=== PATIENT | female | born 1990 | race Caucasian/White ===

== ENCOUNTER 2017-02-14 14:48 | Emergency (ER) | payer OTHER ==
--- NOTE | 2017-02-14 17:11 | ED NURSING NOTES ---
Clinical Report - Nurses [facility] [address] [place] [address] 02/14/2017 14:48 Patient: CHAYO MOYA [facility]#: [id number] TRIAGE Triage time 15:00. Acuity: LEVEL 3. Chief Complaint: SKIN LESION. Alert. JEANIE COMA SCORE: [place] Coma Scale: 15- eyes open spontaneously (4); best verbal response- oriented x 4 (5); best motor response- obeys commands (6). --15:08 Dana Martin R.N. 15:00 02/14/17. BP: 121/76. HR: 88. RR: 18. O2 saturation: 99% on room air. Temp: 98.2 F (oral). Pain level now: 07/13. --15:08 Dana Martin R.N. Weight: 54.4 kg stated. Height/Length: 64 inches Per Patient. BMI: 20.6. --15:02 Dana Martin R.N. Medications None. --15:01 Dana Martin R.N. Medication/allergy information source: the patient. --15:08 Dana Martin R.N. Allergies No Known Drug Allergy. --15:02 Dana Martin R.N. History Arrived by private vehicle. Historian: patient. Accompanied by family. Primary physician (none). Reported as located on the right knee, left arm and left knee. Onset. (about 2 days). It is described as painful. PAST MEDICAL HX: Last normal menstrual period- IUD, no period for 7 years. SOCIAL HX: Light tobacco smoker- less than 1/2 a pack per day. History of heavy drug use: heroin. (injects). No alcohol use. --15:08 Dana Martin R.N. PROBLEMS: Herpes Zoster. Anemia. Substance Abuse. Cellulitis. Hemorrhage. Healing Abscess. Constipation. Lifestyle / Substance Problems. Abscess. Seizure. --15:02 Dana Martin R.N. ADDITIONAL SURGERIES: Adenoidectomy. Appendectomy. Mal rotated bowel surgery as child. Tonsillectomy. Tonsillectomy & Adenoidectomy. --15:02 Dana Martin R.N. Assessment GENERAL / NEURO / PSYCH: The patient is awake and alert, is oriented and cooperative and appears uncomfortable. She has poor eye contact. RESPIRATORY: Respirations not labored. SKIN: Skin is warm and dry. --15:08 Dana Martin R.N. Interventions ID band on patient. To treatment room. --15:08 Dana Martin R.N. PHYSICAL ASSESSMENT 15:09 02/14/17. Ambulatory to room. Patient gowned. GENERAL / NEURO / PSYCH: The patient is awake and alert, is oriented and cooperative and appears uncomfortable. She has poor eye contact. RESPIRATORY: Respirations not labored. SKIN: Skin is warm and dry. Skin lesion on the right knee, left forearm and left knee. Drainage. Skin tenderness present. Swelling present. Erythema present. --15:09 Dana Martin R.N. NURSING PROGRESS NOTES 15:02/14/17. Patient gowned. Head of bed elevated. Call light placed in reach. Side rails up x 1. Bed placed in lowest position. Brakes of bed on. --15:10 Dana Martin R.N. 15:30 02/14/2017 Site #1 started via IV in the right forearm with an 24g angiocath, with aseptic technique and good blood return; one attempt. Saline lock flushed with 10 mL saline (unable to draw blood). --15:30 Dana Martin R.N. 17:00 02/14/2017 Started 1 gm of Vancomycin IVPB in bag #1 250 mL; at 250 mL/hr over 1 hour(s) via site #1 --17:00 Gurmeet Berrios R.N. 17:23 02/14/17. BP: 120/80. HR: 96. RR: 18. O2 saturation: 100% on room air. Pain level now: unknown. --17:24 Dana Martin R.N. 17:24 02/14/17. Reassessment after medication administered. She is sleeping. Overall patient status is the same- she states feels the same. RESPIRATORY: No respiratory distress. SKIN: Skin is warm and dry. --17:24 Dana Martin R.N. 17:27 02/14/2017 Site #1 reassessed; patent, infusing well and no signs of infiltration. (Vancomycin continues to infuse). --17:27 Dana Martin R.N. 18:05 02/14/2017 Vancomycin IVPB Discontinued: bag #1 infused upon discharge. Total amount infused: 200 mL. IV patency established. IV site checked: no pain, redness, or swelling. IV flushed thoroughly. --18:11 Raysa Orozco R.N. ( three areas of infection (cellulitis and abcess) marked with skin marker. Culture of draining wound on right knee obtained and sent. Dressing applied to right leg abcess.). --18:56 Gurmeet Berrios R.N. Urine collected. --18:58 Gurmeet Berrios R.N. DISPOSITION / DISCHARGE 18:15 02/14/17. BP: 119/76. HR: 101. RR: 16. O2 saturation: 100% on room air. Temp: 100.4 F. Pain level now: 8/10. --18:20 Raysa Orozco R.N. 18:58 02/14/17. BP: 125/92. HR: 104. RR: 24. O2 saturation: 98%. Temp: 100.1 F. Pain level now 7/10. --19:02 Gurmeet Berrios R.N. Condition at departure: unchanged. ( Patient and mother both voiced some concern that patient needed to be discharged. Patient instructed to return here tomorrow for a recheck since she has no primary care and to return here sooner if she starts getting worse.). No learning barriers present. Discharge instructions provided and reviewed with the patient. Patient verbalized understanding. Written instructions provided in Malay. The patient was discharged by the nurse practitioner. She was discharged home and accompanied by parent. She left the Emergency Department ambulatory. --19:02 Gurmeet Berrios R.N. 19:02 02/14/2017 Site #1 removed upon discharge. Catheter intact. Bandaid applied. --19:02 Gurmeet Berrios R.N. Locked/Released at 02/14/2017 19:04 by Gurmeet Berrios R.N.
--- NOTE | 2017-02-14 17:11 | ED ORDER SUMMARY ---
..... Patient: CHAYO MOYA OrderSheet [facility] VisitID: [id number] [place] [address] 26y, F Registration Date/Time: 02/14/2017 ORDER SHEET Weight: 54.4 kg (stated) Allergies: No Known Drug Allergy GENERAL ORDERS: Blood Culture (No) (N/A) Urgent (15:02/14/2017 HBivens A.R.N.P.) (Ack 15:28 Mobilingaurca ER Tech1) (17:25 Alexandre R.N.) CBC w Diff Urgent (:02/14/2017 HBivens A.R.N.P.) (Ack 15:28 IJurca ER Tech1) (17:25 Alexandre R.N.) CMP Urgent (:02/14/2017 HBivens A.R.N.P.) (Ack 15:28 IJurca ER Tech1) (17:25 Alexandre R.N.) UA-Culture if indicated Urgent (15:02/14/2017 HBivens A.R.N.P.) (Ack 15:28 Mobilingaurca ER Tech1) (19:03 GMarshall R.N.) Urine Drug Screen Urgent (15:02/14/2017 HBivens A.R.N.P.) (Ack 15:28 IJurca ER Tech1) (19:03 GMarshall R.N.) Urine Urgent (:02/14/2017 HBivens A.R.N.P.) (Ack 15:28 IJurca ER Tech1) (19:03 GMarshall R.N.) Lactate, Serum Urgent (:02/14/2017 HBivens A.R.N.P.) (Ack 15:28 IJurca ER Tech1) (17:25 Alexandre R.N.) PCT (Procalcitonin) Urgent (15:02/14/2017 HBivens A.R.N.P.) (Ack 15:28 IJurca ER Tech1) (17:25 Alexandre R.N.) Culture, Wound Deep (Leg) (R lower leg near knee) Urgent (18:29 02/14/2017 HBivens A.R.N.P.) (Ack 18:31 IJurca ER Tech1) (19:03 GMarshall R.N.) MEDICATION ORDERS: IV FLUIDS: IV Saline Lock (15:26 02/14/2017 HBivens A.R.N.P.) (15:30 Alexandre R.N.) Vancomycin IV 1 gm/200mL (NOW) (16:43 02/14/2017 HBivens A.R.N.P.) (17:00 GMarshall R.N.) ORDER SHEET NOTES: [Electronically signed by Gurmeet Berrios R.N. (19:04 02/14/2017)] [Electronically signed by Leticia SandraR.N.P. (19:09 02/14/2017)] [Electronically locked/signed by Gurmeet Berrios R.N. (19:04 02/14/2017)]
--- NOTE | 2017-02-14 17:11 | ED ORDER SUMMARY ---
..... Patient: CHAYO MOYA OrderSheet [facility] VisitID: [id number] [place] [address] 26y, F Registration Date/Time: 02/14/2017 ORDER SHEET Weight: 54.4 kg (stated) Allergies: No Known Drug Allergy GENERAL ORDERS: Blood Culture (No) (N/A) Urgent (15:02/14/2017 HBivens A.R.N.P.) (Ack 15:28 ValetAnywhereurca ER Tech1) (17:25 Alexandre R.N.) CBC w Diff Urgent (:02/14/2017 HBivens A.R.N.P.) (Ack 15:28 IJurca ER Tech1) (17:25 Alexandre R.N.) CMP Urgent (:02/14/2017 HBivens A.R.N.P.) (Ack 15:28 IJurca ER Tech1) (17:25 Alexandre R.N.) UA-Culture if indicated Urgent (15:02/14/2017 HBivens A.R.N.P.) (Ack 15:28 ValetAnywhereurca ER Tech1) (19:03 GMarshall R.N.) Urine Drug Screen Urgent (15:02/14/2017 HBivens A.R.N.P.) (Ack 15:28 IJurca ER Tech1) (19:03 GMarshall R.N.) Urine Urgent (:02/14/2017 HBivens A.R.N.P.) (Ack 15:28 IJurca ER Tech1) (19:03 GMarshall R.N.) Lactate, Serum Urgent (:02/14/2017 HBivens A.R.N.P.) (Ack 15:28 IJurca ER Tech1) (17:25 Alexandre R.N.) PCT (Procalcitonin) Urgent (15:02/14/2017 HBivens A.R.N.P.) (Ack 15:28 IJurca ER Tech1) (17:25 Alexandre R.N.) Culture, Wound Deep (Leg) (R lower leg near knee) Urgent (18:29 02/14/2017 HBivens A.R.N.P.) (Ack 18:31 IJurca ER Tech1) (19:03 GMarshall R.N.) MEDICATION ORDERS: IV FLUIDS: IV Saline Lock (15:26 02/14/2017 HBivens A.R.N.P.) (15:30 Alexandre R.N.) Vancomycin IV 1 gm/200mL (NOW) (16:43 02/14/2017 HBivens A.R.N.P.) (17:00 GMarshall R.N.) ORDER SHEET NOTES: [Electronically signed by Gurmeet Berrios R.N. (19:04 02/14/2017)] [Electronically signed by Leticia SandraR.N.P. (19:09 02/14/2017)] [Electronically locked/signed by Gurmeet Berrios R.N. (19:04 02/14/2017)]
--- NOTE | 2017-02-14 17:11 | ED CLINICAL REPORT ---
Clinical Report - Physicians/Mid Levels [facility] [address] [place] [address] 02/14/2017 14:48 Patient: CHAYO MOYA Time Seen: 15:00; initial patient contact, initial documentation, patient care assumed. Arrived- By private vehicle. Historian- patient. HISTORY OF PRESENT ILLNESS Chief Complaint: LESION. This started about 3 days ago and is still present. It was abrupt in onset and has been constant. Not itchy or burning. It is described as painful. It has been located on the left arm, right knee and left leg. A cause has been identified. (pt admits to shooting heroin in the muscle, says there are no veins left). Similar symptoms previously: Frequently, milder. Recent medical care: Not recently seen/assessed. REVIEW OF SYSTEMS The patient has had a subjective fever. No difficulty breathing. All systems otherwise negative, except as recorded above. PAST HISTORY See nurses notes. PROBLEMS: Herpes Zoster. Anemia. Substance Abuse. Cellulitis. Hemorrhage. Healing Abscess. Constipation. Lifestyle / Substance Problems. Abscess. Seizure. --15:02 Dana Martin R.N. ADDITIONAL SURGERIES: Adenoidectomy. Appendectomy. Mal rotated bowel surgery as child. Tonsillectomy. Tonsillectomy & Adenoidectomy. --15:02 Dana Martin R.N. SOCIAL HISTORY Light tobacco smoker. History of heavy IV drug use: heroin. Recently used drugs today. Under influence in ED. No alcohol use. No recent travel. Is a local resident. FAMILY HISTORY Negative. ADDITIONAL NOTES The nursing notes have been reviewed with agreement regarding the chief complaint, HPI, ROS, PMH and patient medications and allergies. PHYSICAL EXAM Vital Signs: 02/14/2017 15:00 BP: 121/76. HR: 88. RR: 18. O2 saturation: 99%. Temp: 98.2 F. Pain level now: 9/10. Have been reviewed as normal and appear to be correct. Appearance: Alert. Oriented X3. No acute distress. (pt appears under the influence). Eyes: Pupils equal, round and reactive to light. Conjunctivae and eyelids normal. ENT: ( extensive dental decay, almost every tooth affected by caries and broken off or missing). Neck: Neck supple. (L axilla nodes swollen and tender). CVS: Normal heart rate and rhythm. Heart sounds normal. Respiratory: No respiratory distress. Breath sounds normal. Chest nontender. Abdomen: Nontender. No organomegaly. Skin: Skin warm and dry. Abnormal skin color. No rash. Normal skin turgor. Large area of cellulitis with tenderness, erythema, warmth and lymphangitis to left forearm and left leg. Single large abscess with fluctuance, pointing, drainage and cellulitis to right leg (almost circumferential cellulitis, and abscess itself is about a 1cm wide in diameter, swollen and draining). Extremities: Abnormal external inspection. Extremity tenderness. Bilateral mild 1+ non-pitting edema of the lower extremities involving both feet and both ankles. No upper extremity edema. No calf tenderness. Neuro: Oriented X 3. No motor deficit. No sensory deficit. LABS, X-RAYS, AND EKG Laboratory Tests: CBC w Diff: (ARNOLDO: 02/14/2017 15:50) ( MsgRcvd 02/14/2017 16:16) Final results Test Result Flag Units (Reference) WHITE BLOOD COUNT 15.5 H K/uL (4.5-11.5) RED BLOOD COUNT 4.73 M/uL (4.00-5.20) HEMOGLOBIN 10.9 L gm/dL (12.0-16.0) HEMATOCRIT 34.0 L % (36.0-46.0) MEAN CELL VOLUME 72 L fL (80-100) MEAN CORPUSCULAR HGB 23 L pg (26-34) MEAN CORPUSCULAR HGB CONC 32 g/dL (31-37) RED CELL DISTRIBUTION WIDTH 17.3 H % (11.6-14.8) PLATELET COUNT 305 K/uL (150-400) NEUTROPHIL % 84.2 H % (50-75) LYMPH % 10.4 L % (25-40) MONO % 4.3 % (3-14) EOSINOPHIL % 0.3 % (0-4) BASOPHIL % 0.8 % (0-2) Lactate, Serum: (ARNOLDO: 02/14/2017 15:55) ( MsgRcvd 02/14/2017 16:26) Final results Test Result Flag Units (Reference) LACTIC ACID 1.7 mmol/L (0.4-2.0) [id number]: (ARNOLDO: 02/14/2017 15:50) ( MsgRcvd 02/14/2017 16:43) Final results Test Result Flag Units (Reference) PROCALCITONIN <0.5 ng/mL (0-0.5) PCT Concentration: Interpretation : Risk/option for action PCT <=0.5 ng/mL : Systemic : Low risk forinfection(sepsis): progression to severeis not likely. : systemic infection.Local bacterial : CAUTION-PCT levelsinfection is : below 0.5 ng/mL do notpossible. : exclude an infection,because localizedinfections (withoutsystemic signs) may beassociated with suchlow levels. If PCT ismeasured very earlyafter a bacterialchallenge (usually <6hours), these valuesmay still be low. Inthis case PCT shouldbe re-assessed 6-24hours later. PCT >0.5 and : Systemic infection: Moderate risk for<= 2 ng/mL : (sepsis) is : progression to severepossible, but : systemic infection.other conditions : The patient should beare known to : closely monitoredelevate PCT. : both clinically andby re-assessing PCTwithin 6-24 hours. PCT > 2 ng/mL : Systemic infection: High risk for(sepsis) is likely: progression to severeunless other : systemic infection.causes are known. : PCT >= 10 ng/mL : Important systemic: High likelihood ofinflammatory : severe sepsis orresponse, almost : septic shock.exclusively due to:severe bacterial :sepsis or septic :shock. : CMP: (ARNOLDO: 02/14/2017 15:50) ( MsgRcvd 02/14/2017 16:36) Final results Test Result Flag Units (Reference) GLUCOSE 114 H mg/dL (70-110) BUN 6 L mg/dL (7-18) CREATININE 0.5 L mg/dL (0.6-1.3) Estimated GFR >60 mL/min Estimated GFR- >60 mL/min Note: Persistent reduction over 3 months in eGFR<60 mL/min/1.73 m2 defines CKD. Patients with eGFR values>=60 mL/min/1.73 m2 may also have CKD if evidence ofpersistent proteinuria. Additional information may be foundat www.kidney.org. SODIUM 138 mmol/L (136-145) POTASSIUM 4.0 mmol/L (3.5-5.1) CHLORIDE 100 mmol/L (98-107) CARBON DIOXIDE 28 mmol/L (21-32) CALCIUM 8.6 mg/dL (8.5-10.1) TOTAL PROTEIN 7.3 g/dL (6.4-8.2) ALBUMIN 3.1 L g/dL (3.3-5.0) BILIRUBIN, TOTAL 0.5 mg/dL (0.0-1.0) ALKALINE PHOSPHATASE 74 U/L (46-116) AST (SGOT) 18 U/L (15-37) ALT (SGPT) 35 U/L (12-78) . PROGRESS AND PROCEDURES Course of Care: pt telling from initial exam she doesn't really want to stay in hospital and unless blood work is real bad, she wants to go home 1655. agreed to try outpatient therapy if pt stayed for iv abx prior to leaving here and would take abx as ordered nurse Gurmeet did speak with pt again, in regards to staying for admit, pt declined saying she could come back tomorrow for more abx if needed. 02/14/2017 18:58 BP: 125/92. HR: 104. RR: 24. O2 saturation: 98%. Temp: 100.1 F. Vital Signs: have been reviewed as abnormal and appear to be correct. Blood pressure normal. Heart rate normal. Respiratory rate normal. Febrile. Oxygen saturation normal. Patient counseled in person regarding the patient's stable condition, test results and diagnosis. 1654. Differential Diagnosis: Other possible considerations: substance abuse, cellulitis, abscess, mrsa, sepsis. Above considerations are based on history, physical exam and laboratory data. Differential diagnosis was discussed with patient. Disposition: Discharged home in good and improved condition (17:10). Condition: good and stable. CLINICAL IMPRESSION Cellulitis of the right lower leg, left forearm and left lower leg. Single deep abscess to the right lower extremity. INSTRUCTIONS Warnings: Further evaluation is necessary in order to assess the possibility of serious illness. It is very important to follow up with a physician. GENERAL WARNINGS: Return or contact your physician immediately if your condition worsens or changes unexpectedly, if not improving as expected, or if other problems arise. Specifically return if problem worsens. Prescription Medications: Bactrim DS 800 mg / 160 mg: take 1 tablet orally every day for 10 days. No refill. Keflex 500 mg: take 1 capsule orally every 6 hours for 10 days. No refill. Motrin 800 mg tablets: take 1 tablet orally every 8 hours as needed for pain. Dispense thirty (30). No refills. Substitution is permissible. Follow-up: Follow up with your doctor tomorrow even if well and for wound check. Call for an appointment. Summary of care provided to patient. Understanding of the discharge instructions verbalized by patient. (Electronically signed by Leticia Sandra A.R.N.P. 02/14/2017 19:10)
--- NOTE | 2017-02-14 19:10 | ED DISCHARGE INSTRUCTIONS ---
Patient: CHAYO MOYA General Instructions [facility] VisitID: [id number] [place] [address] 26y, F Registration Date/Time: 02/14/2017 Cellulitis of the right lower leg, left forearm and left lower leg. Single deep abscess to the right lower extremity. INSTRUCTIONS Warnings: Further evaluation is necessary in order to assess the possibility of serious illness. It is very important to follow up with a physician. GENERAL WARNINGS: Return or contact your physician immediately if your condition worsens or changes unexpectedly, if not improving as expected, or if other problems arise. Specifically return if problem worsens. Prescription Medications: Bactrim DS 800 mg / 160 mg: take 1 tablet orally every day for 10 days. No refill. Keflex 500 mg: take 1 capsule orally every 6 hours for 10 days. No refill. Motrin 800 mg tablets: take 1 tablet orally every 8 hours as needed for pain. Dispense thirty (30). No refills. Substitution is permissible. Follow-up: Follow up with your doctor tomorrow even if well and for wound check. Call for an appointment. Summary of care provided to patient. Understanding of the discharge instructions verbalized by patient. ADDITIONAL INFORMATION Cellulitis You have an infection of the skin known as cellulitis. This usually starts with a scrape, cut, insect bite, blister or other opening in the skin which becomes infected. This is a serious condition. It must be watched closely to be sure the infection is not spreading. With antibiotic treatment, the size of the red area will gradually shrink in size until the skin returns to normal. This will take 7-10 days. The red area should never increase in size once the antibiotic medicine has been started. Occasionally, an infection will be resistant to one antibiotic and another one will have to be used. Home Care: 1) Limit the use of the affected part, since excess movement can cause the infection to spread. 2) If the infection is on your leg, walk as little as possible during the first few days of the treatment. Keep your leg elevated while sitting. This will reduce swelling. 3) Take all of the antibiotic medicine exactly as directed until it is gone. Be careful not to miss any doses, especially during the first seven days. Follow Up with your doctor or this facility as directed. Check the infected area daily for the warning signs listed below. Get Prompt Medical Attention if any of the following occur: -- Spreading area of redness -- Increasing swelling or pain -- Appearance of pus or drainage -- Fever over 100.4 F (38.0 C) oral, or over 101.4 F (38.6 C) rectal, after two days on antibiotics Staph Infection (MRSA) "Staph" is the short name for the common bacteria called "staphylococcus aureus". Staph bacteria are often present on the skin without causing an infection. If it gets under the skin an infection occurs. This causes redness, tenderness, swelling and sometimes fluid drainage. MRSA stands for "Methicillin-Resistant Staph Aureus". Unlike a common staph infection, MRSA bacteria are resistant to the usual antibiotics and harder to treat. Also, MRSA is more toxic than common staph bacteria. It can spread quickly throughout the body and cause a life-threatening illness. MRSA is spread to others by direct physical contact with the bacteria. MRSA can also be transmitted from items contaminated by a person who has the bacteria, such as bandages, towels, bed sheets, or sports equipment. It is not spread through the air. Once you have a MRSA skin infection, you are at risk of having it recur in the future. If MRSA infection is suspected, the doctor may take a wound culture to confirm the diagnosis. Any abscess will be drained. One or sometimes two antibiotics that work against MRSA will be prescribed. Home Care: 1) Take any antibiotics prescribed exactly as directed until they are gone. 2) Follow the same washing procedures as outlined for Household Members below. 3) Keep draining wounds covered with clean, dry bandages. Change dressings as they become soiled. 4) You and those in contact with you should wash their hands frequently with soap and warm water or use an alcohol-based hand water softener servicer and installer. Do this after each time you change the bandage or touch the wound. 5) Avoid sharing personal items such as towels, washcloths, razors, clothing, or uniforms. Wash soiled sheets, towels or clothes in hot water with laundry detergent. Use an automatic clothes dryer set on high to kill any remaining bacteria. 6) Remove any artificial nails and nail tamazight. 7) If you use a gym, wipe down equipment before and after each use. Treatment Of Household Members If you have been diagnosed with possible MRSA infection, those living with you are at higher risk of carrying the bacteria on their skin or in their nose, even if there is no sign of infection. Bacteria must be removed from the skin of all household members (including you) at the same time, so that it is not passed back and forth. Advise them to remove the bacteria as follows: Wash your whole body (scalp to toes) daily for five days with Hibiclens (chlorhexidine). Scrub fingernails with a brush for one minute twice a day. If any skin infections are present (boils, abscess, infected cut) these must be treated by a doctor. Washing alone will not treat a MRSA infection. Clean counter tops and children's toys; do not share personal items such as toothbrush and razors. It is okay to share glasses, plates, utensils. If antibiotic ointment was prescribed use it as directed. Follow Up with your doctor or as advised by our staff. If a wound culture was taken, call as directed in two days to obtain the results. If the culture result is positive for MRSA, tell medical personnel in the future that you were treated for this type of infection. Get Prompt Medical Attention if any of the following occur: -- Increasing redness, swelling or pain -- Red streaks in the skin around the wound -- Weakness or dizziness -- New appearance of pus or drainage from the wound -- New fever over 100.4 F (38.0 C) Abscess (Antibiotic Treatment Only) An abscess (sometimes called a boil) occurs when bacteria get trapped under the skin and begin to grow. Pus forms inside the abscess as the body responds to the bacteria. An abscess can occur with an insect bite, ingrown hair, blocked oil gland, pimple, cyst, or puncture wound. In the early stages, redness and tenderness are the only symptoms. Sometimes, this stage can be treated with antibiotics alone. If the abscess does not respond to antibiotic treatment, it will need to be drained with a small cut, under local anesthesia. Home care The following will help you care for your abscess at home: Soak the wound in hot water or apply hot packs (small towel soaked in hot water) to the area for 20 minutes at a time. Do this three to four times a day. Apply antibiotic cream or ointment onto the skin 3-4 times a day, unless something else was prescribed. Some ointments include an antibiotic plus a local pain reliever. If your doctor prescribed antibiotics, do not stop taking this medication until you have finished the prescribed course or the doctor tells you to stop. You may use an [id number] pain medication to control pain, unless another pain medicine was prescribed. If you have chronic liver or kidney disease or ever had a stomach ulcer or GI bleeding, talk with your doctor before using these any of these. Follow-up care Follow up with your health care provider as advised by our staff. Look at your wound each day for the signs of worsening infection listed below. When to seek medical care Get prompt medical attention if any of the following occur: An increase in redness or swelling Red streaks in the skin leading away from the abscess An increase in local pain or swelling Fever of 100.4F (38C) or higher, or as directed by your health care provider Pus or fluid coming from the abscess Sulfamethoxazole, Trimethoprim Oral tablet What is this medicine? SULFAMETHOXAZOLE; TRIMETHOPRIM or SMX-TMP (suhl fuh meth OK glo zohl; trye METH oh prim) is a combination of a sulfonamide antibiotic and a second antibiotic, trimethoprim. It is used to treat or prevent certain kinds of bacterial infections. It will not work for colds, flu, or other viral infections. How should I use this medicine? Take this medicine by mouth with a full glass of water. Follow the directions on the prescription label. Take your medicine at regular intervals. Do not take it more often than directed. Do not skip doses or stop your medicine early. Talk to your professor of journalism regarding the use of this medicine in children. Special care may be needed. This medicine has been used in children as young as 2 months of age. What side effects may I notice from receiving this medicine? Side effects that you should report to your doctor or health district manager primary care sales as soon as possible: allergic reactions like skin rash or hives, swelling of the face, lips, or tongue breathing problems fever or chills, sore throat irregular heartbeat, chest pain joint or muscle pain pain or difficulty passing urine red pinpoint spots on skin redness, blistering, peeling or loosening of the skin, including inside the mouth unusual bleeding or bruising unusually weak or tired yellowing of the eyes or skin Side effects that usually do not require medical attention (report to your doctor or health district manager primary care sales if they continue or are bothersome): diarrhea dizziness headache loss of appetite nausea, vomiting nervousness What may interact with this medicine? Do not take this medicine with any of the following medications: aminobenzoate potassium dofetilide metronidazole This medicine may also interact with the following medications: KAELYN inhibitors like benazepril, enalapril, lisinopril, and ramipril cyclosporine digoxin diuretics indomethacin medicines for diabetes methenamine methotrexate phenytoin potassium supplements pyrimethamine sulfinpyrazone tricyclic antidepressants warfarin What if I miss a dose? If you miss a dose, take it as soon as you can. If it is almost time for your next dose, take only that dose. Do not take double or extra doses. Where should I keep my medicine? Keep out of the reach of children. Store at room temperature between 20 to 25 degrees C (68 to 77 degrees F). Protect from light. Throw away any unused medicine after the expiration date. What should I tell my health care provider before I take this medicine? They need to know if you have any of these conditions: anemia asthma being treated with anticonvulsants if you frequently drink alcohol containing drinks kidney disease liver disease low level of folic acid or maitgeg-[id number] dehydrogenase poor nutrition or malabsorption porphyria severe allergies thyroid disorder an unusual or allergic reaction to sulfamethoxazole, trimethoprim, sulfa drugs, other medicines, foods, dyes, or preservatives or trying to get breast-feeding What should I watch for while using this medicine? Tell your doctor or health district manager primary care sales if your symptoms do not improve. Drink several glasses of water a day to reduce the risk of kidney problems. Do not treat diarrhea with over the counter products. Contact your doctor if you have diarrhea that lasts more than 2 days or if it is severe and watery. This medicine can make you more sensitive to the sun. Keep out of the sun. If you cannot avoid being in the sun, wear protective clothing and use a sunscreen. Do not use sun lamps or tanning beds/booths. Cephalexin Monohydrate Oral tablet What is this medicine? CEPHALEXIN (sef a SAM in) is a cephalosporin antibiotic. It is used to treat certain kinds of bacterial infections It will not work for colds, flu, or other viral infections. How should I use this medicine? Take this medicine by mouth with a full glass of water. Follow the directions on the prescription label. This medicine can be taken with or without food. Take your medicine at regular intervals. Do not take your medicine more often than directed. Take all of your medicine as directed even if you think you are better. Do not skip doses or stop your medicine early. Talk to your professor of journalism regarding the use of this medicine in children. While this drug may be prescribed for selected conditions, precautions do apply. What side effects may I notice from receiving this medicine? Side effects that you should report to your doctor or health district manager primary care sales as soon as possible: allergic reactions like skin rash, itching or hives, swelling of the face, lips, or tongue breathing problems pain or trouble passing urine redness, blistering, peeling or loosening of the skin, including inside the mouth severe or watery diarrhea unusually weak or tired yellowing of the eyes, skin Side effects that usually do not require medical attention (report to your doctor or health district manager primary care sales if they continue or are bothersome): gas or heartburn genital or anal irritation headache joint or muscle pain nausea, vomiting What may interact with this medicine? probenecid some other antibiotics What if I miss a dose? If you miss a dose, take it as soon as you can. If it is almost time for your next dose, take only that dose. Do not take double or extra doses. There should be at least 4 to 6 hours between doses. Where should I keep my medicine? Keep out of the reach of children. Store at room temperature between 59 and 86 degrees F (15 and 30 degrees C). Throw away any unused medicine after the expiration date. What should I tell my health care provider before I take this medicine? They need to know if you have any of these conditions: kidney disease stomach or intestine problems, especially colitis an unusual or allergic reaction to cephalexin, other cephalosporins, penicillins, other antibiotics, medicines, foods, dyes or preservatives or trying to get breast-feeding What should I watch for while using this medicine? Tell your doctor or health district manager primary care sales if your symptoms do not begin to improve in a few days. Do not treat diarrhea with over the counter products. Contact your doctor if you have diarrhea that lasts more than 2 days or if it is severe and watery. If you have diabetes, you may get a false-positive result for sugar in your urine. Check with your doctor or health district manager primary care sales. Ibuprofen Oral tablet What is this medicine? IBUPROFEN (eye BYOO proe fen) is a non-steroidal anti-inflammatory drug (NSAID). It is used for dental pain, fever, headaches or migraines, osteoarthritis, rheumatoid arthritis, or painful monthly periods. It can also relieve minor aches and pains caused by a cold, flu, or sore throat. How should I use this medicine? Take this medicine by mouth with a glass of water. Follow the directions on the prescription label. Take this medicine with food if your stomach gets upset. Try to not lie down for at least 10 minutes after you take the medicine. Take your medicine at regular intervals. Do not take your medicine more often than directed. A special MedGuide will be given to you by the pharmacist with each prescription and refill. Be sure to read this information carefully each time. Talk to your professor of journalism regarding the use of this medicine in children. Special care may be needed. What side effects may I notice from receiving this medicine? Side effects that you should report to your doctor or health district manager primary care sales as soon as possible: allergic reactions like skin rash, itching or hives, swelling of the face, lips, or tongue black or bloody stools, blood in the urine or in vomit breathing problems changes in vision chest pain general ill feeling or flu-like symptoms nausea or vomiting redness, blistering, peeling or loosening of the skin, including inside the mouth slurred speech or weakness on one side of the body stomach pain unexplained weight gain or swelling unusually weak or tired yellowing of eyes or skin Side effects that usually do not require medical attention (report to your doctor or health district manager primary care sales if they continue or are bothersome): constipation or diarrhea dizziness gas or heartburn stomach upset What may interact with this medicine? Do not take this medicine with any of the following medications: cidofovir ketorolac methotrexate pemetrexed This medicine may also interact with the following medications: alcohol aspirin diuretics lithium other drugs for inflammation like prednisone warfarin What if I miss a dose? If you miss a dose, take it as soon as you can. If it is almost time for your next dose, take only that dose. Do not take double or extra doses. Where should I keep my medicine? Keep out of the reach of children. Store at room temperature between 15 and 30 degrees C (59 and 86 degrees F). Keep container tightly closed. Throw away any unused medicine after the expiration date. What should I tell my health care provider before I take this medicine? They need to know if you have any of these conditions: asthma cigarette smoker drink more than 3 alcohol containing drinks a day heart disease or circulation problems such as heart failure or leg edema (fluid retention) high blood pressure kidney disease liver disease stomach bleeding or ulcers an unusual or allergic reaction to ibuprofen, aspirin, other NSAIDS, other medicines, foods, dyes, or preservatives or trying to get breast-feeding What should I watch for while using this medicine? Tell your doctor or healthcare professional if your symptoms do not start to get better or if they get worse. This medicine does not prevent heart attack or stroke. In fact, this medicine may increase the chance of a heart attack or stroke. The chance may increase with longer use of this medicine and in people who have heart disease. If you take aspirin to prevent heart attack or stroke, talk with your doctor or health district manager primary care sales. Do not take other medicines that contain aspirin, ibuprofen, or naproxen with this medicine. Side effects such as stomach upset, nausea, or ulcers may be more likely to occur. Many medicines available without a prescription should not be taken with this medicine. This medicine can cause ulcers and bleeding in the stomach and intestines at any time during treatment. Ulcers and bleeding can happen without warning symptoms and can cause . To reduce your risk, do not smoke cigarettes or drink alcohol while you are taking this medicine. You may get drowsy or dizzy. Do not drive, use machinery, or do anything that needs mental alertness until you know how this medicine affects you. Do not stand or sit up quickly, especially if you are an older patient. This reduces the risk of dizzy or fainting spells. This medicine can cause you to bleed more easily. Try to avoid damage to your teeth and gums when you brush or floss your teeth. You have been given the following additional information: Cellulitis MRSA Skin Infection, Suspected Or Confirmed Abscess, Antiobiotic Treatment Only Sulfamethoxazole, Trimethoprim Oral tablet Cephalexin Monohydrate Oral tablet Ibuprofen Oral tablet (Electronically signed by Leticia Sandra A.R.N.P. 02/14/2017 19:10)
--- NOTE | 2017-02-14 19:10 | ED MAR SUMMARY ---
..... Medication Administration Record [facility] [address] [place] [address] Patient: CHAYO MOYA Visit ID: [id number] 26y, F Weight: 54.4 kg Height/Length: 64 in BMI: 20.6 ALLERGIES: No Known Drug Allergy Start 17:00 02/14/2017 Gurmeet Berrios R.N., Stop 18:05 02/14/2017 ErnestoRaysa ROren. Medication Administered: VANCOMYCIN [IVPB], Dose: 1 gm IVPB over 1 hour(s), Rate: 250 mL/hr, Dispensed: 250 mL bag, Site: #1 right forearm. Medication Ordered: Vancomycin IV 1 gm/200mL (NOW).
--- NOTE | 2017-02-14 19:10 | ED MED RECONCILIATION SUMMARY ---
Patient: CHAYO MOYA Medication Reconciliation Report [facility] VisitID: [id number] [place] [address] 26y, F Registration Date/Time: 02/14/2017 Weight: 54.4 kg Height/Length: 64 in. BMI: 20.6 ALLERGIES: No Known Drug Allergy The patient's Home Medications are listed below: NONE. The source(s) of the original Home Medication information: patient The following Medications were given to the patient in the Emergency Department: Vancomycin [IVPB] IVPB bolus 0, then 1 gm 250 mL/hr, administered: 02/14/2017 5:00:00 PM The following Medications were prescribed to the patient: Bactrim DS 800 mg / 160 mg: take 1 tablet orally every day for 10 days. No refill. -- Leticia Sandra A.R.N.P. Keflex 500 mg: take 1 capsule orally every 6 hours for 10 days. No refill. -- Leticia Sandra A.R.N.P. Motrin 800 mg tablets: take 1 tablet orally every 8 hours as needed for pain. Dispense thirty (30). No refills. Substitution is permissible. -- Leticia Sandra A.R.N.P.
--- NOTE | 2017-02-14 19:10 | ED MED RECONCILIATION SUMMARY ---
Patient: CHAYO MOYA Medication Reconciliation Report [facility] VisitID: [id number] [place] [address] 26y, F Registration Date/Time: 02/14/2017 Weight: 54.4 kg Height/Length: 64 in. BMI: 20.6 ALLERGIES: No Known Drug Allergy The patient's Home Medications are listed below: NONE. The source(s) of the original Home Medication information: patient The following Medications were given to the patient in the Emergency Department: Vancomycin [IVPB] IVPB bolus 0, then 1 gm 250 mL/hr, administered: 02/14/2017 5:00:00 PM The following Medications were prescribed to the patient: Bactrim DS 800 mg / 160 mg: take 1 tablet orally every day for 10 days. No refill. -- Leticia Sandra A.R.N.P. Keflex 500 mg: take 1 capsule orally every 6 hours for 10 days. No refill. -- Leticia Sandra A.R.N.P. Motrin 800 mg tablets: take 1 tablet orally every 8 hours as needed for pain. Dispense thirty (30). No refills. Substitution is permissible. -- Leticia Sandra A.R.N.P.
--- NOTE | 2017-02-14 19:10 | ED MAR SUMMARY ---
..... Medication Administration Record [facility] [address] [place] [address] Patient: CHAYO MOYA Visit ID: [id number] 26y, F Weight: 54.4 kg Height/Length: 64 in BMI: 20.6 ALLERGIES: No Known Drug Allergy Start 17:00 02/14/2017 Gurmeet Berrios R.N., Stop 18:05 02/14/2017 ErnestoRaysa ROren. Medication Administered: VANCOMYCIN [IVPB], Dose: 1 gm IVPB over 1 hour(s), Rate: 250 mL/hr, Dispensed: 250 mL bag, Site: #1 right forearm. Medication Ordered: Vancomycin IV 1 gm/200mL (NOW).
== END 2017-02-14 19:05 | disposition home or self-care (01) ==
LOC: ED SRH 14:48
DX: L02.415 Cutaneous abscess of right lower limb (principal); B95.62 Methicillin resistant Staphylococcus aureus infection as the cause of diseases classified elsewhere; L03.115 Cellulitis of right lower limb; L03.116 Cellulitis of left lower limb; L03.114 Cellulitis of left upper limb; F17.290 Nicotine dependence, other tobacco product, uncomplicated; F11.10 Opioid abuse, uncomplicated
CPT/HCPCS: 90004; 90065; 90070; 90074; 90100; 90131; 90309; 90469; 90470; 90627; 91672; 92031; 92760; 92761; 92762; 92763; 92764; 92765; 92766; 92767; 93004; 93070; 95059